=== PATIENT | female | born 1955 | race African-American/Black ===

== ENCOUNTER 2020-01-29 03:27 | Emergency (ER) | payer OTHER ==
[~2020-01-29] VITALS: Ht 157.5 cm; Wt 50.8 kg
[2020-01-29 04:44] LABS: Basophils # (auto) 0 10 ^3/uL (0-0.2); Basophils % (auto) 0.6 % (0.0-2.0); Eosinophils # (auto) 0 10 ^3/uL (0-0.8); Eosinophils % (auto) 0.1 % (0.0-7.0); Hematocrit 41.1 % (36.0-46.0); Hemoglobin 13.5 g/dL (12.2-16.2); Lymphocytes % (auto) 14.9 % (10.0-50.0); Mean Corpuscular Hemoglobin 29.3 pg (28.0-32.0); Mean Corpuscular Hgb Conc. 32.9 g/dL (32.0-36.0); Monocytes # (auto) 0.4 10 ^3/uL (0-1.3); Monocytes % (auto) 5.5 % (0.0-12.0); Neutrophils # (auto) 5.1 10 ^3/uL (1.6-8.6); Neutrophils % (auto) 78.9 % (37.0-80.0); Nucleated Red Blood Cells % 0.1 %; Platelet Count (auto) 250 10^3/uL (140-450); Red Blood Cells 4.62 10^6/uL (4.0-5.20); Red Cell Distribution Width 14.4 % (11.8-14.3); White Blood Cell 6.4 10^3/uL (4.4-10.8)
[2020-01-29 04:55] LABS: INR 3.49 (0.9-1.15); Partial Thromboplastin Time 39.8 sec (23.64-32.05)
[2020-01-29 05:00] LABS: Albumin 3.8 g/dL (3.4-5.0); Anion Gap 6 (5-15); Blood Urea Nitrogen 27 mg/dL (7-18); Calcium 8.9 mg/dL (8.5-10.1); Carbon Dioxide 27 mmol/L (21-32); Chloride 102 mmol/L (98-107); Glucose 138 mg/dL (74-106); Magnesium 2.3 mg/dL (1.6-2.6); Potassium 3.8 mmol/L (3.5-5.1); Sodium 135 mmol/L (136-145)
[2020-01-29 05:07] LABS: Alanine Aminotransferase 11 U/L (13-56); Alkaline Phosphatase 130 U/L (45-117); Aspartate Aminotransferase 17 U/L (15-37); Bilirubin, Total 0.4 mg/dL (0.2-1.0); GFR African American 66 mL/min; GFR Non-African American 54 mL/min; Total Protein 8.2 g/dL (6.4-8.2)
[2020-01-29] MEDS ORDERED: diphenhdrAMINE HCL 25 MG CAP PO ONE (05:30)
[2020-01-29] MEDS ORDERED: methylPREDNISolone SOD SUCC 125 MG/2 ML VL IV ONE (06:00)
[2020-01-29 06:45] VITALS: BP 113/68
== END 2020-01-29 06:50 | disposition home or self-care (01) ==
LOC: ER 03:30
DX: R06.02 Shortness of breath (principal); R06.00 Dyspnea, unspecified; M54.2 Cervicalgia; I11.0 Hypertensive heart disease with heart failure; I50.9 Heart failure, unspecified; I48.91 Unspecified atrial fibrillation; D68.9 Coagulation defect, unspecified; R13.10 Dysphagia, unspecified
CPT/HCPCS: 36415; 71045; 80053; 83735; 83880; 84443; 84484; 85025; 85610; 85730; 93005; 96374; 99285; J2930

== ENCOUNTER 2022-12-02 18:01 | Inpatient (IN) | payer OTHER, MEDICARE ==
[~2022-12-02] VITALS: Ht 160 cm; Wt 70.0 kg
[2022-12-02 20:42] LABS: Basophils # (auto) 0 10 ^3/uL (0-0.2); Basophils % (auto) 0.6 % (0.0-2.0); Eosinophils # (auto) 0 10 ^3/uL (0-0.8); Eosinophils % (auto) 0.3 % (0.0-7.0); Hematocrit 48.4 % (36.0-46.0); Hemoglobin 15.8 g/dL (12.2-16.2); Lymphocytes % (auto) 26.7 % (10.0-50.0); Mean Corpuscular Hemoglobin 29.9 pg (28.0-32.0); Mean Corpuscular Hgb Conc. 32.6 g/dL (32.0-36.0); Mean Corpuscular Volume 91.6 fL (80.0-100.0); Monocytes # (auto) 0.5 10 ^3/uL (0-1.3); Monocytes % (auto) 7.4 % (0.0-12.0); Neutrophils # (auto) 4.8 10 ^3/uL (1.6-8.6); Nucleated Red Blood Cells % 0.2 %; Red Blood Cells 5.29 10^6/uL (4.0-5.20); Red Cell Distribution Width 13.8 % (11.8-14.3); White Blood Cell 7.4 10^3/uL (4.4-10.8)
[2022-12-02 21:05] LABS: Acetaminophen < 2.0 ug/mL (10-30)
[2022-12-02 21:06] LABS: Alanine Aminotransferase 20 U/L (13-56); Anion Gap 8 (5-15); Blood Alcohol < 3.0 mg/dL (0-5); Blood Urea Nitrogen 38 mg/dL (7-18); Calcium 9.9 mg/dL (8.5-10.1); Carbon Dioxide 27 mmol/L (21-32); Chloride 97 mmol/L (98-107); Glucose 82 mg/dL (74-106); Lipase 292 U/L (73-393); Potassium 4.8 mmol/L (3.5-5.1); Sodium 132 mmol/L (136-145)
[2022-12-02 21:10] LABS: Alkaline Phosphatase 74 U/L (45-117); Aspartate Aminotransferase 28 U/L (15-37); BUN/Creatinine Ratio 40.9; Bilirubin, Total 1.6 mg/dL (0.2-1.0); GFR African American 77 mL/min; GFR Non-African American 64 mL/min; Total Protein 7.2 g/dL (6.4-8.2)
[2022-12-02 21:57] LABS: Salicylate < 1.7 mg/dL (2.8-20.0)
[2022-12-02] MEDS ORDERED: LACTATED RINGER'S 1,000 ML IV ONE ×2 (22:30→23:00)
[2022-12-02 23:01] LABS: INR 1.62 (0.9-1.15); Partial Thromboplastin Time 31.1 sec (24.6-33.4)
[2022-12-03] MEDS ORDERED: ENOXAPARIN SOD 80 MG/0.8ML SYRINGE SC ONE (02:00)
[2022-12-03] MEDS ORDERED: SODIUM CHLORIDE 0.9% 1,000 ML IV SCH (03:00)
[2022-12-03] MEDS ORDERED: ONDANSETRON HCL 4 MG/2 ML VIAL IV PRN (03:00)
[2022-12-03] MEDS ORDERED: NITROGLYCERIN 0.4 MG SL TAB SL PRN (03:00)
[2022-12-03] MEDS ORDERED: MORPHINE SULFATE INJ 2 MG/ml SYRG IV PRN (03:00)
[2022-12-03 03:38] LABS: Urine Bacteria FEW /hpf (None Seen); Urine Blood Negative /uL (Negative); Urine Hyaline Cast FEW /lpf (0 - 2); Urine Specific Gravity 1.022 (1.001-1.035); Urine WBC 1 /hpf (0 - 5)
[2022-12-03 03:46] LABS: Alcohol, Urine < 3.0 mg/dL (0-10); Amphetamine Screen, Urine NEGATIVE (NEGATIVE); Barbiturate Scree,Urine NEGATIVE (NEGATIVE); Benzodiazephine Screen, Urine NEGATIVE (NEGATIVE); Cannabinoid Screen, Urine POSITIVE (NEGATIVE); Cocaine Screen, Urine NEGATIVE (NEGATIVE); Opiate Scree,Urine NEGATIVE (NEGATIVE); Phencyclidine Screen, Urine NEGATIVE (NEGATIVE)
[2022-12-03] MEDS: SPIRONOLACTONE 25 MG TAB PO SCH (09:54)
[2022-12-03] MEDS: PANTOPRAZOLE 40 MG TAB PO SCH (09:55)
[2022-12-03] MEDS: LISINOPRIL 10 MG TAB PO SCH (09:55)
[2022-12-03] MEDS: FUROSEMIDE 40 MG TAB PO SCH (09:55)
[2022-12-03] MEDS ORDERED: METOPROLOL SUCCINATE XL 50 MG TAB PO SCH (10:00)
[2022-12-03] MEDS ORDERED: hydrALAZINE HCL 20 MG/ML VL IV PRN (13:15)
[2022-12-03] MEDS ORDERED: WARFARIN SODIUM 5 MG TAB PO ONE (17:00)
[2022-12-03 17:34] LABS: INR 1.76 (0.9-1.15)
[2022-12-03] MEDS ORDERED: WARFARIN SODIUM 2 MG TAB PO ONE (18:15)
[2022-12-04 05:55] LABS: Basophils # (auto) 0 10 ^3/uL (0-0.2); Basophils % (auto) 0.4 % (0.0-2.0); Eosinophils # (auto) 0 10 ^3/uL (0-0.8); Eosinophils % (auto) 0.6 % (0.0-7.0); Hematocrit 41.9 % (36.0-46.0); Hemoglobin 14.2 g/dL (12.2-16.2); Lymphocytes # (auto) 2.3 10 ^3/uL (0.4-5.4); Mean Corpuscular Hemoglobin 30.7 pg (28.0-32.0); Mean Corpuscular Hgb Conc. 33.9 g/dL (32.0-36.0); Mean Corpuscular Volume 90.4 fL (80.0-100.0); Monocytes # (auto) 0.5 10 ^3/uL (0-1.3); Monocytes % (auto) 7.6 % (0.0-12.0); Neutrophils # (auto) 3.6 10 ^3/uL (1.6-8.6); Neutrophils % (auto) 56.4 % (37.0-80.0); Nucleated Red Blood Cells % 0.1 %; Red Blood Cells 4.63 10^6/uL (4.0-5.20); Red Cell Distribution Width 13.6 % (11.8-14.3); White Blood Cell 6.5 10^3/uL (4.4-10.8)
[2022-12-04 06:15] LABS: INR 1.56 (0.9-1.15); Partial Thromboplastin Time 30.8 sec (24.6-33.4)
[2022-12-04 06:19] LABS: Potassium 3.9 mmol/L (3.5-5.1)
[2022-12-04 06:23] LABS: Albumin 3.3 g/dL (3.4-5.0); BUN/Creatinine Ratio 24.4; Calcium 9.1 mg/dL (8.5-10.1)
[2022-12-04 06:26] LABS: Bilirubin, Total 1.5 mg/dL (0.2-1.0); Total Protein 6.3 g/dL (6.4-8.2)
[2022-12-04] MEDS: SPIRONOLACTONE 25 MG TAB PO SCH (11:12)
[2022-12-04] MEDS: FUROSEMIDE 40 MG TAB PO SCH (11:13)
[2022-12-04] MEDS: LISINOPRIL 10 MG TAB PO SCH (11:13)
[2022-12-04] MEDS: PANTOPRAZOLE 40 MG TAB PO SCH (11:13)
[2022-12-04] MEDS ORDERED: WARFARIN SODIUM 5 MG TAB PO ONE (17:00)
[2022-12-05] MEDS ORDERED: METOPROLOL TARTRATE 1MG/1ML-5ML VIAL IV ONE ×2 (01:00→09:00)
[2022-12-05 06:35] LABS: INR 1.69 (0.9-1.15); Partial Thromboplastin Time 30.4 sec (24.6-33.4)
[2022-12-05 07:03] LABS: BUN/Creatinine Ratio 17.2; Calcium 9.3 mg/dL (8.5-10.1)
[2022-12-05] MEDS ORDERED: dilTIAZem 25 MG/5 ML VIAL IV ONE (07:15)
[2022-12-05] MEDS: PANTOPRAZOLE 40 MG TAB PO SCH (10:35)
[2022-12-05] MEDS: FUROSEMIDE 40 MG TAB PO SCH (10:35)
[2022-12-05] MEDS: SPIRONOLACTONE 25 MG TAB PO SCH (10:35)
[2022-12-05] MEDS: LISINOPRIL 10 MG TAB PO SCH (10:35)
[2022-12-05] MEDS ORDERED: METOPROLOL TARTRATE 25 MG TAB PO ONE (11:30)
[2022-12-05] MEDS ORDERED: WARFARIN SODIUM 5 MG TAB PO ONE (17:00)
[2022-12-05] MEDS: METOPROLOL TARTRATE 25 MG TAB PO SCH (22:22)
[2022-12-05] MEDS ORDERED: LORazepam 2MG/ML-1ML VIAL IV PRN (23:50)
[2022-12-05] MEDS ORDERED: LORazepam 2MG/ML-1ML VIAL ONE (23:51)
[2022-12-06] MEDS ORDERED: MELATONIN 5 MG TAB PO ONE (04:45)
[2022-12-06 06:33] LABS: Basophils # (auto) 0 10 ^3/uL (0-0.2); Basophils % (auto) 0.7 % (0.0-2.0); Eosinophils # (auto) 0 10 ^3/uL (0-0.8); Eosinophils % (auto) 0.4 % (0.0-7.0); Hematocrit 42.5 % (36.0-46.0); Hemoglobin 14.5 g/dL (12.2-16.2); Lymphocytes # (auto) 1.8 10 ^3/uL (0.4-5.4); Lymphocytes % (auto) 23.2 % (10.0-50.0); Mean Corpuscular Hemoglobin 30.9 pg (28.0-32.0); Mean Corpuscular Volume 90.6 fL (80.0-100.0); Monocytes # (auto) 0.6 10 ^3/uL (0-1.3); Monocytes % (auto) 8.1 % (0.0-12.0); Neutrophils # (auto) 5.2 10 ^3/uL (1.6-8.6); Neutrophils % (auto) 67.6 % (37.0-80.0); Nucleated Red Blood Cells % 0.2 %; Red Blood Cells 4.69 10^6/uL (4.0-5.20); Red Cell Distribution Width 13.8 % (11.8-14.3); White Blood Cell 7.6 10^3/uL (4.4-10.8)
[2022-12-06 06:47] LABS: INR 2.24 (0.9-1.15); Partial Thromboplastin Time 31.8 sec (24.6-33.4)
[2022-12-06] MEDS: SPIRONOLACTONE 25 MG TAB PO SCH (10:08)
[2022-12-06] MEDS: PANTOPRAZOLE 40 MG TAB PO SCH (10:08)
[2022-12-06] MEDS: METOPROLOL TARTRATE 25 MG TAB PO SCH (10:08)
[2022-12-06] MEDS: LISINOPRIL 10 MG TAB PO SCH (10:09)
[2022-12-06] MEDS: FUROSEMIDE 40 MG TAB PO SCH (10:09)
[2022-12-06] MEDS ORDERED: WARFARIN SODIUM 1 MG TAB PO ONE (17:00)
[2022-12-06 19:33] VITALS: BP 115/60
== END 2022-12-06 19:30 | disposition short-term general hospital (02) | DRG 917 ==
LOC: ER 18:01 → EDBD 18:01 → TELE 12-03 02:57
PROVIDERS: ADMIT Nurse Practitioner; ATTEND Internal Medicine
DX: T40.722A Poisoning by synthetic cannabinoids, intentional self-harm, initial encounter (principal); G92.8 Other toxic encephalopathy; I21.A1 Myocardial infarction type 2; I50.43 Acute on chronic combined systolic (congestive) and diastolic (congestive) heart failure; D68.9 Coagulation defect, unspecified; D68.69 Other thrombophilia; I48.20 Chronic atrial fibrillation, unspecified; E78.5 Hyperlipidemia, unspecified; E86.0 Dehydration; E87.6 Hypokalemia; I11.0 Hypertensive heart disease with heart failure; J44.9 Chronic obstructive pulmonary disease, unspecified; T46.0X5A Adverse effect of cardiac-stimulant glycosides and drugs of similar action, initial encounter; F32.9 Major depressive disorder, single episode, unspecified; Z20.822 Contact with and (suspected) exposure to COVID-19; F41.9 Anxiety disorder, unspecified; R01.1 Cardiac murmur, unspecified; R79.89 Other specified abnormal findings of blood chemistry; Y92.89 Other specified places as the place of occurrence of the external cause; Z91.51 Personal history of suicidal behavior; Z79.01 Long term (current) use of anticoagulants
CPT/HCPCS: 36415; 71045; 80048; 80053; 80162; 80307; 80320; 80329; 81001; 82140; 82553; 83605; 83690; 83735; 83880; 83930; 84484; 85025; 85610; 85730; 87426; 93005; 93306; 96360; 96361; 99291; G0378